=== PATIENT | female | born 1970 | race Caucasian/White ===

== ENCOUNTER 2021-01-25 21:24 | Observation (INO) ==
[2021-01-25 21:54] LABS: Basophils # 0.1 K/mcL (0.0-0.2); Basophils % 0.6 %; Eosinophils # 0.2 K/mcL (0.0-0.6); Eosinophils % 1.5 %; Hematocrit 41.7 % (35.3-44.9); Hemoglobin 13.4 g/dL (11.5-15.4); Immature Granulocytes % 0.2 % (0-4); Lymphocytes # 3.5 K/mcL (0.6-4.6); Lymphocytes % 34.5 %; Mean Corpuscular HGB Conc 32.1 g/dL (31.6-35.5); Mean Corpuscular Hemoglobin 30.2 pg (28.0-33.3); Mean Corpuscular Volume 93.9 fL (83.0-100.0); Mean Platelet Volume 11.8 fL (9.4-12.4); Monocytes # 0.8 K/mcL (0.0-1.3); Neutrophils # 5.5 K/mcL (1.6-8.9); Platelet Count 233 K/mcL (140-400); Red Blood Count 4.44 M/mcL (3.82-4.97); Red Cell Distribution Width 13.2 % (11.5-14.5); Segmented Neutrophils % 55.2 %
[2021-01-25 22:10] LABS: INR 1.1; Prothrombin Time 12.6 Seconds (9.4-12.1)
[2021-01-25 22:13] LABS: Activated Partial Thrombo Time 36.7 Seconds (26.0-36.0)
[2021-01-25 22:22] LABS: BUN/Creatinine Ratio 27 (6-26); Blood Urea Nitrogen 18 mg/dL (6-20); Calcium 9.3 mg/dL (8.6-10.3); Carbon Dioxide 24 mEq/L (23-29); Chloride 107 mEq/L (98-107); Glucose 83 mg/dL (70-105); Osmolality,Calculated 289 (280-300); Potassium 3.8 mEq/L (3.5-5.1); Sodium 139 mEq/L (136-145); Troponin I < 0.03 ng/mL (< 0.04); eGFR For African Americans > 60 (> 60); eGFR For Non-African Americans > 60 (> 60)
[2021-01-25] MEDS ORDERED: Ondansetron 4 MG/2 ML VIAL IVP ONE (22:30)
[2021-01-25] MEDS ORDERED: Morphine Sulfate 2 MG/ML SYRINGE IVP ONE (22:30)
[2021-01-25] MEDS ORDERED: Isovue-370 500 ML BOTTLE IVP ONE (22:30)
[2021-01-26] MEDS: Nitroglycerin 0.4 MG TAB.SUBL SL SCH ×3 (00:24→04:11)
[2021-01-26] MEDS ORDERED: Aspirin 325 MG TABLET PO ONE (01:38)
[2021-01-26] MEDS ORDERED: Nicotine 21 MG PATCH.TD24 TD ONE (01:42)
[2021-01-26] MEDS ORDERED: tiZANidine 4 MG TABLET PO ONE (03:57)
[2021-01-26] MEDS ORDERED: Acetaminophen 325 MG TABLET PO PRN (03:57)
[2021-01-26] MEDS ORDERED: Naloxone 0.4 MG/ML INJ IVP PRN (03:57)
[2021-01-26] MEDS ORDERED: Nitroglycerin 0.4 MG TAB.SUBL SL PRN (04:02)
[2021-01-26] MEDS ORDERED: Morphine Sulfate 2 MG/ML SYRINGE IVP PRN (04:03)
[2021-01-26] MEDS ORDERED: Perflutren Lipid Microsphere 1.3 ML in 0.9 % Sodium Chloride 8.7 ML IVP PRN (04:04)
[2021-01-26 06:21] LABS: Hematocrit 40.4 % (35.3-44.9); Hemoglobin 13.1 g/dL (11.5-15.4); Mean Corpuscular HGB Conc 32.4 g/dL (31.6-35.5); Mean Corpuscular Hemoglobin 30.3 pg (28.0-33.3); Mean Corpuscular Volume 93.3 fL (83.0-100.0); Mean Platelet Volume 11.7 fL (9.4-12.4); Platelet Count 193 K/mcL (140-400); Red Blood Count 4.33 M/mcL (3.82-4.97); Red Cell Distribution Width 13.3 % (11.5-14.5); White Blood Count 7.9 K/mcL (4.3-11.1)
[2021-01-26 06:33] LABS: Prothrombin Time 11.6 Seconds (9.4-12.1)
[2021-01-26 06:36] LABS: Activated Partial Thrombo Time 35.2 Seconds (26.0-36.0)
[2021-01-26 06:51] VITALS: BP 99/67; PULSE 53; TEMP 97.4; O2SAT 99
[2021-01-26 06:54] LABS: BUN/Creatinine Ratio 29 (6-26); Blood Urea Nitrogen 15 mg/dL (6-20); Calcium 8.9 mg/dL (8.6-10.3); Carbon Dioxide 24 mEq/L (23-29); Chloride 105 mEq/L (98-107); Chol/HDL Ratio 2.5 (0-4.9); Cholesterol 111 mg/dL (< 200); Glucose 87 mg/dL (70-105); HDL Cholesterol 44 mg/dL (40-59); LDL Cholesterol,Calculated 50 mg/dL (< 100); Magnesium 1.8 mg/dL (1.6-2.6); Osmolality,Calculated 280 (280-300); Potassium 3.7 mEq/L (3.5-5.1); Sodium 135 mEq/L (136-145); Triglycerides 86 mg/dL (< 150); Troponin I < 0.03 ng/mL (< 0.04); eGFR For African Americans > 60 (> 60); eGFR For Non-African Americans > 60 (> 60)
[2021-01-26 06:55] LABS: Iron 36 mcg/dL (50-170)
[2021-01-26 07:03] LABS: Ferritin 55 ng/mL (10-120)
[2021-01-26 07:09] LABS: Folate 11.4 ng/mL (3.0-16.0)
[2021-01-26 09:00] LABS: Estimated Average Glucose 126 mg/dl
[2021-01-26] MEDS ORDERED: Aspirin Enteric Coated 81 MG Tablet PO SCH (09:00)
[2021-01-26] MEDS ORDERED: *HR* Rivaroxaban 10 MG TABLET PO SCH (09:00)
[2021-01-26] MEDS: Regadenoson 0.4 MG/5 ML SYRINGE IVP ONE ×2 (09:12→09:30)
[2021-01-26] MEDS ORDERED: Nicotine 21 MG PATCH.TD24 TD SCH (14:00)
[2021-01-28 10:45] LABS: % Iron Saturation 12 % (15-50); Transferrin 220 mg/dL (200-400)
== END 2021-01-26 16:19 | disposition home or self-care (01) ==
LOC: 3ANU 21:24 → EMEROOARM 21:24 → 3ANU 01-26 02:39
PROVIDERS: ADMIT Internal Medicine; ATTEND Internal Medicine